=== PATIENT | female | born 1965 | race Two or more races ===

== ENCOUNTER 2025-03-12 10:15 | Outpatient (CLI) | payer MEDICAID ==
[2025-03-12 10:44] LABS: Hematocrit 51.7 % (36.0-46.0); Hemoglobin 17.4 g/dL (12.2-16.2); Mean Corpuscular Hemoglobin 32.2 pg (28.0-32.0); Mean Corpuscular Volume 95.5 fL (80.0-100.0); Nucleated Red Blood Cells % 0.1 %
[2025-03-12 11:06] LABS: Iron 95.0 ug/dL (50-170)
[2025-03-12 11:08] LABS: Triglycerides 127 mg/dL (< 150)
[2025-03-12 11:09] LABS: Total Iron Binding Capacity 346.0 ug/dL (250-425)
[2025-03-12 11:10] LABS: Cholesterol 243 mg/dL (< 200); HDL Cholesterol 48 mg/dL (40-59)
[2025-03-12 11:13] LABS: Ferritin 170.9 ng/mL (10-291); Free T4 (Free Thyroxine) 0.96 ng/dL (0.89-1.76)
[2025-03-12 13:00] LABS: Hepatitis A Total Antibody Positive (Negative); Hepatitis B Surface Antigen Negative (Negative)
[2025-03-12 13:09] LABS: Hepatitis C Antibody Reactive (Negative)
== END 2025-03-12 17:00 | disposition home or self-care (01) ==
LOC: LAB 10:15
PROVIDERS: ATTEND Licensed Practical Nurse
DX: E55.9 Vitamin D deficiency, unspecified (principal); Z13.29 Encounter for screening for other suspected endocrine disorder; Z00.01 Encounter for general adult medical examination with abnormal findings; Z13.1 Encounter for screening for diabetes mellitus
CPT/HCPCS: 36415; 80061; 82043; 82306; 82728; 83036; 83540; 83550; 84439; 84443; 85025; 86704; 86706; 86708; 86803; 87340

== ENCOUNTER 2025-03-25 10:55 | Outpatient (CLI) | payer MEDICAID | END 2025-03-25 17:00 | disposition home or self-care (01) | LOC: LAB 10:55 | PROVIDERS: ATTEND Licensed Practical Nurse | DX: Z12.11 Encounter for screening for malignant neoplasm of colon (principal) | CPT/HCPCS: 82274 ==